=== PATIENT | female | born 1940 | race Caucasian/White ===

== ENCOUNTER 2020-06-13 07:03 | Emergency (ER) | payer MEDICARE ==
[~2020-06-13] VITALS: Ht 149.9 cm; Wt 68.6 kg
[~2020-06-13 07:03] MED LIST: CAPT1TAB7 PO; LEVO50TA5 PO; OXYB5POW MC; RANI-375 PO
[2020-06-13 07:36] VITALS: BP 167/79
--- NOTE | 2020-06-13 07:51 | RAD ---
Three-view left ankle dated 06/13/2020. No comparison available. CLINICAL INDICATION: Pain after injury. FINDINGS: 3 views left ankle show normal bony alignment. No displaced fracture. There is a corticated bone fragment near the tip of the medial malleolus, likely accessory ossification center or remote avulsion. Possible small osteochondral defect at the medial talar dome measuring about 3 mm. No apparent joint effusion. Small calcaneal spur. IMPRESSION: 1. No acute bony abnormality. 2. Possible small osteochondral defect at the medial talar dome, age indeterminate. Electronically signed by: Gabe Navarro MD (06/13/2020 7:48 AM) [id number]
[2020-06-13] MEDS ORDERED: IBUPROFEN 600 MG TABLET. PO ONE (08:00)
[2020-06-13] MEDS ORDERED: SULI200T2 PO (08:03)
--- NOTE | 2020-06-13 08:05 | PHYS DOC ---
Past History Past Medical History: High Cholesterol, Hypertension, Hyperthyroid Past Surgical History: Cholecystectomy, Hysterectomy Additional Past Surgical Histo: BACK Smoking: Non-smoker Alcohol Use: None Drug Use: None General Adult EDM: Chief Complaint: LOWER EXT PAIN HPI: HPI: The history was obtained from the patient. Patient is a 79-year-old female with PMH arthritis, hypertension, hyperlipidemia who presents with a chief complaint of left foot pain. Patient states 1 week ago she caught her third through fifth left toes in a car door. She states she did note some discomfort in her toes throughout the week. 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 She states she was on her feet for proximally 5 hours. She states she has had increased left medial foot pain since then. She has tried Tylenol at home with minimal relief. She states that she takes 1 g of Tylenol in the morning and in the evenings daily due to arthritis. She states she is never had arthritis in her foot. She states it is somewhat difficult to ambulate but she is able to. She denies any swelling. She has tried ice with some relief. She denies any knee pain. She denies any falls or head trauma. She denies any swelling to the left lower extremity. She denies any overlying skin changes. She states the medial aspect of her left foot is tender to touch. She denies any limitations in her ankle range of motion. No other complaints. Review of Systems: Review of Systems: Constitutional: Denies fever or chills Eyes: Denies change in visual acuity HENT: Denies nasal congestion or sore throat Respiratory: Denies cough or shortness of breath Cardiovascular: Denies chest pain or edema GI: Denies abdominal pain, nausea, vomiting, bloody stools or diarrhea : Denies dysuria Musculoskeletal: Positive for left ankle pain Integument: Denies rash Neurologic: Denies headache, focal weakness or sensory changes Endocrine: Denies polyuria or polydipsia Lymphatic: Denies swollen glands Psychiatric: Denies depression or anxiety Heart Score: Risk Factors: Risk Factors: DM, Current or recent (<one month) smoker, HTN, HLP, family history of CAD, obesity. Risk Scores: Score 0 - 3: 2.5% MACE over next 6 weeks - Discharge Home Score 4 - 6: 20.3% MACE over next 6 weeks - Admit for Clinical Observation Score 7 - 10: 72.7% MACE over next 6 weeks - Early Invasive Strategies Allergies: Allergies: Allergies Coded Allergies Type Severity Reaction Last Updated Verified No Known Drug Allergies 10/13/13 No Physical Exam: PE: Constitutional: Well developed, well nourished, no acute distress, non-toxic appearance. [] HENT: Normocephalic, atraumatic, bilateral external ears normal, oropharynx moist, no oral exudates, nose normal. [] Eyes: PERRLA, EOMI, conjunctiva normal, no discharge. [] Neck: Normal range of motion, no tenderness, supple, no stridor. [] Cardiovascular:Heart rate regular rhythm, no murmur [] Lungs & Thorax: Bilateral breath sounds clear to auscultation [] Abdomen: no tenderness, no masses, no pulsatile masses. [] Skin: Warm, dry, no erythema, no rash. [] Back: No tenderness, no CVA tenderness. [] Extremities: L KNEE/ANKLE/FOOT: Focal tenderness to palpation at the medial aspect of the left midfoot.. Tissue compartments are soft. Distal pulses are 2+. Knee extension is intact. Plantar flexion is intact. Proximal fibula is not tender to palpation. Medial malleolus is not tender to palpation. Lateral malleolus is not tender to palpation. 5th metatarsal head is not tender to palpation. There is no obvious deformity. Passive ROM is reduced due to pain. Active ROM is reduced due to pain. Neurologic: Alert and oriented X 3, normal motor function, normal sensory function, no focal deficits noted. [] Psychologic: Affect normal, judgement normal, mood normal. [] Current Patient Data: Vital Signs: Vital Signs Date Time Temp Pulse Resp B/P (MAP) Pulse Ox O2 Delivery O2 Flow Rate FiO2 06/13/20 07:36 97.2 85 18 167/79 (108) 100 EKG: EKG: [] Radiology/Procedures: Radiology/Procedures: [address] [address] IMAGING REPORT Signed PATIENT: CARLOS FORD ACCOUNT: [id number] : 1940 LOCATION: ER AGE: 79 SEX: F EXAM STATUS: REG ER ORD. PHYSICIAN: BLAZE TRACEY DO REASON: left ankle injury - pain on lateral side PROCEDURE: ANKLE LEFT 3V Three-view left ankle dated 06/13/2020. No comparison available. CLINICAL INDICATION: Pain after injury. FINDINGS: 3 views left ankle show normal bony alignment. No displaced fracture. There is a corticated bone fragment near the tip of the medial malleolus, likely accessory ossification center or remote avulsion. Possible small osteochondral defect at the medial talar dome measuring about 3 mm. No apparent joint effusion. Small calcaneal spur. IMPRESSION: 1. No acute bony abnormality. 2. Possible small osteochondral defect at the medial talar dome, age indeterminate. Electronically signed by: Gabe Navarro MD (06/13/2020 7:48 AM) [id number] DICTATED AND SIGNED BY: GABE NAVARRO MD DATE: 06/13/20 0748 CC: [facility]; BLAZE TRACEY DO; MER DOMINIQUE ~ [] Course & Med Decision Making: Course & Med Decision Making Pertinent Labs and Imaging studies reviewed. (See chart for details) Patient is a very pleasant 79-year-old female presents with chief complaint of medial left foot pain. Ritesh vital signs unremarkable. Physical exam noted below. Plain film imaging of the left foot and ankle negative for acute fracture. Her symptoms could be exacerbation of her initial injury after standing on her feet for the past 5 hours. Overall low suspicion for emergent etiology. No signs of infection. Patient was given a one-time dose of ibuprofen. I encouraged her to use ibuprofen but very limitedly given the potential side effects regarding her kidneys. I encouraged her to continue to ice her ankle, compression, elevation, and rest. She was offered a walking boot but states that she has at home. She is declining anyone for the emergency department. Patient does feel comfortable following up with her primary care physician in the next 2 3 days. Return precautions discussed and understood. She was able to ambulate prior to discharge. Stable for discharge home. Aleja Disclaimer: Aleja Disclaimer: This electronic medical record was generated, in whole or in part, using a voice recognition dictation system. Departure Departure: Impression: Primary Impression: Left foot pain Disposition: HOME/RESIDENCE PRIOR TO ADM Condition: GOOD Referrals: MER DOMINIQUE (PCP) Patient Instructions: Foot Contusion Additional Instructions: Please follow-up with your primary care physician in the next 2 to 3 days. Scripts Sulindac (SULINDAC) 200 Mg Tablet 200 MG PO BID for pain for 5 Days, #10 TAB Prov: BLAZE TRACEY DO 06/13/20 Justification of Admission: Justification of Admission: Justification of Admission Dx: N/A BLAZE TRACEY DO Jun 13, 2020 08:05
== END 2020-06-13 08:16 | disposition home or self-care (01) ==
LOC: ER 07:03
DX: M79.672 Pain in left foot (principal); M25.572 Pain in left ankle and joints of left foot; E78.00 Pure hypercholesterolemia, unspecified; I10 Essential (primary) hypertension; E05.90 Thyrotoxicosis, unspecified without thyrotoxic crisis or storm; E78.5 Hyperlipidemia, unspecified; W23.0XXA Caught, crushed, jammed, or pinched between moving objects, initial encounter; Y93.89 Activity, other specified; Y92.89 Other specified places as the place of occurrence of the external cause; Y99.8 Other external cause status
CPT/HCPCS: 73610; 99283

== ENCOUNTER 2020-08-12 12:47 | Inpatient (IN) | payer MEDICARE ==
[~2020-08-12] VITALS: Ht 149.9 cm; Wt 63.4 kg
[~2020-08-12 12:47] MED LIST changes: +SULI200T2 PO
--- NOTE | 2020-08-12 13:05 | PHYS DOC ---
Past History Past Medical History: High Cholesterol, Hypertension, Hyperthyroid Past Surgical History: Cholecystectomy, Hysterectomy Additional Past Surgical Histo: BACK Smoking: Non-smoker Alcohol Use: None Drug Use: None General Adult HPI: HPI: History obtained from the patient. Patient is an 80-year-old female with a history of recent pacemaker placement, hypertension, hyperlipidemia who presents with chief complaint of back pain and chest pain. Patient states she had an episode of severe upper back pain that began yesterday while asleep. She states it awoke her from her sleep around midnight. She states that the pain this morning seem to have subsided. She states however 1 hour prior to arrival she began developing right-sided chest pressure that radiated to her right shoulder. She notes that breathing and makes the pain worse. She denies nausea or diaphoresis. Denies syncope. States she had a pacemaker placed at [facility] 3 weeks ago. Denies any history of coronary artery disease including stent placement. Denies a history of blood clot in the legs or lungs. Denies any swelling to the legs. Denies any new cough or fever. Denies any known exposure to coronavirus. No other complaints. Review of Systems: Review of Systems: Constitutional: Denies fever or chills Eyes: Denies change in visual acuity HENT: Denies nasal congestion or sore throat Respiratory: Denies cough or shortness of breath Cardiovascular: Positive for chest pain GI: Denies abdominal pain, nausea, vomiting, bloody stools or diarrhea : Denies dysuria Musculoskeletal: Denies back pain or joint pain Integument: Denies rash Neurologic: Denies headache, focal weakness or sensory changes Endocrine: Denies polyuria or polydipsia Lymphatic: Denies swollen glands Psychiatric: Denies depression or anxiety Heart Score: Risk Factors: Risk Factors: DM, Current or recent (<one month) smoker, HTN, HLP, family history of CAD, obesity. Risk Scores: Score 0 - 3: 2.5% MACE over next 6 weeks - Discharge Home Score 4 - 6: 20.3% MACE over next 6 weeks - Admit for Clinical Observation Score 7 - 10: 72.7% MACE over next 6 weeks - Early Invasive Strategies Allergies: Allergies: Allergies Coded Allergies Type Severity Reaction Last Updated Verified No Known Drug Allergies 10/13/13 No Physical Exam: PE: Constitutional: Well developed, well nourished, no acute distress, non-toxic appearance. [] HENT: Normocephalic, atraumatic, bilateral external ears normal, oropharynx moist, no oral exudates, nose normal. [] Eyes: PERRLA, EOMI, conjunctiva normal, no discharge. [] Neck: Normal range of motion, no tenderness, supple, no stridor. [] Cardiovascular:Heart rate regular rhythm, no murmur [] Lungs & Thorax: Bilateral breath sounds clear to auscultation [] Abdomen: Bowel sounds normal, soft, no tenderness, no masses, no pulsatile masses. [] Skin: Warm, dry, no erythema, no rash. [] Back: No tenderness, no CVA tenderness. [] Extremities: No tenderness, no cyanosis, no clubbing, ROM intact, no edema. [] Neurologic: Alert and oriented X 3, normal motor function, normal sensory function, no focal deficits noted. [] Psychologic: Affect normal, judgement normal, mood normal. [] Current Patient Data: Labs: Laboratory Tests Test 08/12/20 13:13 White Blood Count 9.4 x10^3/uL Red Blood Count 4.02 x10^6/uL Hemoglobin 11.7 g/dL Hematocrit 36.0 % Mean Corpuscular Volume 90 fL Mean Corpuscular Hemoglobin 29 pg Mean Corpuscular Hemoglobin Concent 33 g/dL Red Cell Distribution Width 13.7 % Platelet Count 283 x10^3/uL Neutrophils (%) (Auto) 66 % Lymphocytes (%) (Auto) 23 % Monocytes (%) (Auto) 8 % Eosinophils (%) (Auto) 4 % Basophils (%) (Auto) 1 % Neutrophils # (Auto) 6.2 x10^3uL Lymphocytes # (Auto) 2.1 x10^3/uL Monocytes # (Auto) 0.7 x10^3/uL Eosinophils # (Auto) 0.4 x10^3/uL Basophils # (Auto) 0.1 x10^3/uL D-Dimer (Marlen) 2.04 mg/L Sodium Level 139 mmol/L Potassium Level 2.8 mmol/L Chloride Level 102 mmol/L Carbon Dioxide Level 25 mmol/L Anion Gap 12 Blood Urea Nitrogen 24 mg/dL Creatinine 1.1 mg/dL Estimated GFR (Cockcroft-Gault) 47.8 Glucose Level 97 mg/dL Calcium Level 11.3 mg/dL Magnesium Level 1.6 mg/dL Troponin I Quantitative < 0.017 ng/mL Current Medications Medications (Trade) Dose Ordered Sig/Mamta Route PRN Reason Start Time Stop Time Status Last Admin Dose Admin Magnesium Sulfate 50 ml @ 25 mls/hr 1X ONCE IV 08/12/20 14:15 08/12/20 16:14 DC Potassium Chloride 100 ml @ 100 mls/hr Q1H IV 08/12/20 14:15 08/12/20 18:14 Sodium Chloride 1,000 ml @ 1,000 mls/hr 1X ONCE IV 08/12/20 14:15 08/12/20 15:14 DC Iohexol (Omnipaque 350 Mg/ml) 100 ml 1X ONCE IV 08/12/20 14:15 08/12/20 14:24 DC 08/12/20 14:27 Iohexol (Omnipaque 350 Mg/ml) 100 ml STK-MED ONCE .ROUTE 08/12/20 14:24 08/12/20 14:24 DC EKG: EKG: [] EKG consistent with normal sinus rhythm. Left axis noted. Nonspecific interventricular conduction delay present. No acute ST segment elevation appreciated. Ventricular rate of 82 bpm. Radiology/Procedures: Radiology/Procedures: [place] [address] IMAGING REPORT Signed PATIENT: CARLOS FORD ACCOUNT: [id number] : 1940 LOCATION: ER AGE: 80 SEX: F EXAM STATUS: REG ER ORD. PHYSICIAN: BLAZE TRACEY DO REASON: pleuritic CP. cocnern for PE PROCEDURE: CT ANGIOGRAPHY CHEST PQRS Compliance Statement: One or more of the following individualized dose reduction techniques were utilized for this examination: 1. Automated exposure control 2. Adjustment of the mA and/or kV according to patient size 3. Use of iterative reconstruction technique CT ANGIOGRAPHY CHEST 08/12/2020 2:08 PM Indication: Pleuritic chest pain COMPARISON: None available. TECHNIQUE: Multiple axial CT images of the chest were obtained after intravenous administration of nonionic contrast. Coronal and sagittal reformats are provided. Maximum intensity projection images are provided. FINDINGS: Left chest wall cardiac device is identified with leads terminating in the right atrium and right ventricle. Heart size borderline enlarged. Three-vessel coronary artery vascular calcific effusions are present. Thoracic aorta is normal in course and caliber. There is adequate opacification of pulmonary arterial system. No filling defects are identified within the opacified pulmonary arteries to suggest acute or chronic pulmonary embolism. Calcified granuloma noted at the right lung base. Calcified mediastinal and right hilar lymph nodes are identified. Small right pleural effusion with adjacent compressive atelectasis versus infiltrate. No pathologically enlarged thoracic lymph nodes are identified. No suspicious solid noncalcified pulmonary nodules. No pulmonary vascular congestion or pneumothorax. Small hiatal hernia. No suspicious osseous abnormality is identified. Superior plate Schmorl's node at T10 with mild height loss. IMPRESSION: No evidence for acute or chronic pulmonary embolism. Trace right pleural effusion with adjacent compressive atelectasis versus infiltrate. Mild cardiomegaly. Three-vessel coronary artery vascular calcifications. Electronically signed by: Cathy Abreu MD (08/12/2020 2:56 PM) [facility] DICTATED AND SIGNED BY: CATHY ABREU MD DATE: 08/12/20 1456 CC: BLAZE TRACEY DO; MER DOMINIQUE ~ [] Course & Med Decision Making: Course & Med Decision Making Pertinent Labs and Imaging studies reviewed. (See chart for details) [] Patient is a very pleasant 80-year-old female who presents with chief complaint of right-sided chest pressure. She knows she had a pacemaker placed at [facility] 3 weeks ago. Denies any known history of coronary artery disease however. Troponin today was not elevated. CT PE study was obtained given the pleuritic component to her symptoms. PE study negative. Pat ient does have a severely low potassium at 2.8. Patient did have this and magnesium replacement started in the emergency department. I do feel she will require hospitalization for further electrolyte replacement and chest pain work- up. Signout given to hospitalist. Aleja Disclaimer: Aleja Disclaimer: This electronic medical record was generated, in whole or in part, using a voice recognition dictation system. Departure Departure: Impression: Primary Impression: Chest pain Qualified Codes: R07.9 - Chest pain, unspecified Additional Impressions: Hypokalemia Hypomagnesemia Disposition: ADMITTED INPT THIS HOSP Condition: STABLE Referrals: MER DOMINIQUE (PCP) BLAZE TRACEY DO Aug 12, 2020 13:05
--- NOTE | 2020-08-12 13:15 | RAD ---
EXAM: CHEST AP ONLY INDICATION: Reason: CP / Spl. Instructions: / History: . TECHNIQUE: Single view COMPARISON: None FINDINGS: Left chest dual-chamber MR-compatible pacemaker is present. The heart size is normal. The great vessels appear unremarkable. There is no hilar or mediastinal mass. The lungs show calcified granuloma the right lung base but otherwise are clear. There is no pleural effusion or pneumothorax. There are no significant osseous abnormalities. Lower cervical spine ACDF surgical changes are present, incompletely imaged. IMPRESSION: No active cardiopulmonary disease. Electronically signed by: Netta Luong MD (08/12/2020 1:12 PM) [id number]
[2020-08-12 13:37] LABS: BASO # 0.1 x10^3/uL (0.0-0.2); BASO % 1 % (0-3); EOS # 0.4 x10^3/uL (0.0-0.7); EOS % 4 % (0-3); HEMOGLOBIN 11.7 g/dL (12.0-15.5); LYMPH # 2.1 x10^3/uL (1.0-4.8); LYMPH % 23 % (24-48); MEAN CORPUSCULAR HEMOGLOBIN 29 pg (25-35); MEAN CORPUSCULAR HGB CONC 33 g/dL (31-37); MEAN CORPUSCULAR VOLUME 90 fL (79-100); MONO # 0.7 x10^3/uL (0.0-1.1); MONO % 8 % (0-9); NEUT # 6.2 x10^3uL (1.8-7.7); NEUT % 66 % (31-73); PLATELET COUNT 283 x10^3/uL (140-400); RED BLOOD COUNT 4.02 x10^6/uL (3.50-5.40); RED CELL DISTRIBUTION WIDTH 13.7 % (11.5-14.5); WHITE BLOOD COUNT 9.4 x10^3/uL (4.0-11.0)
[2020-08-12 13:49] LABS: CALCIUM 11.3 mg/dL (8.5-10.1); CREATININE 1.1 mg/dL (0.6-1.0); GFR 47.8
[2020-08-12 13:54] LABS: POTASSIUM 2.8 mmol/L (3.5-5.1)
[2020-08-12] MEDS ORDERED: IV NORMAL SALINE 1,000ML 1,000 ML IV ONE (14:15)
[2020-08-12] MEDS ORDERED: IOHEXOL 350 MG/ML 100 ML VIAL. IV ONE (14:15)
[2020-08-12] MEDS ORDERED: MAGNESIUM SULFATE 2GM 50 ML IV ONE (14:15)
[2020-08-12] MEDS: POTASSIUM CHLORIDE 10MEQ 100 ML IV SCH ×4 (14:15→17:15)
[2020-08-12] MEDS ORDERED: IOHEXOL 350 MG/ML 100 ML VIAL. ONE (14:24)
--- NOTE | 2020-08-12 14:49 | EKG ---
[address] [address] Test Date: 2020-08-12 Test Time: 12:52:58 Pat Name: [facility] Department: Room: Gender: F Experience Design Director: LORENA : 1940 Requested By: BLAZE TRACEY Order Number: [id number] Reading MD: Measurements Intervals Searchlight Rate: 82 P: 16 ND: 186 QRS: -69 QRSD: 164 T: 110 QT: 424 QTc: 499 Interpretive Statements SINUS RHYTHM ABNORMAL LEFT AXIS DEVIATION NON SPECIFIC INTRAVENTRICULAR BLOCK QRS(T) CONTOUR ABNORMALITY CONSIDER ANTEROSEPTAL MYOCARDIAL DAMAGE CONSIDER INFERIOR MYOCARDIAL DAMAGE ABNORMAL ECG RI6.02 No previous ECG available for comparison
--- NOTE | 2020-08-12 15:00 | RAD ---
PQRS Compliance Statement: One or more of the following individualized dose reduction techniques were utilized for this examination: 1. Automated exposure control 2. Adjustment of the mA and/or kV according to patient size 3. Use of iterative reconstruction technique CT ANGIOGRAPHY CHEST 08/12/2020 2:08 PM Indication: Pleuritic chest pain COMPARISON: None available. TECHNIQUE: Multiple axial CT images of the chest were obtained after intravenous administration of nonionic contrast. Coronal and sagittal reformats are provided. Maximum intensity projection images are provided. FINDINGS: Left chest wall cardiac device is identified with leads terminating in the right atrium and right ventricle. Heart size borderline enlarged. Three-vessel coronary artery vascular calcific effusions are present. Thoracic aorta is normal in course and caliber. There is adequate opacification of pulmonary arterial system. No filling defects are identified within the opacified pulmonary arteries to suggest acute or chronic pulmonary embolism. Calcified granuloma noted at the right lung base. Calcified mediastinal and right hilar lymph nodes are identified. Small right pleural effusion with adjacent compressive atelectasis versus infiltrate. No pathologically enlarged thoracic lymph nodes are identified. No suspicious solid noncalcified pulmonary nodules. No pulmonary vascular congestion or pneumothorax. Small hiatal hernia. No suspicious osseous abnormality is identified. Superior plate Schmorl's node at T10 with mild height loss. IMPRESSION: No evidence for acute or chronic pulmonary embolism. Trace right pleural effusion with adjacent compressive atelectasis versus infiltrate. Mild cardiomegaly. Three-vessel coronary artery vascular calcifications. Electronically signed by: Hafsa Van MD (08/12/2020 2:56 PM) [facility]
[2020-08-12] MEDS: IV NORMAL SALINE 1,000ML 1,000 ML IV SCH (17:45)
--- NOTE | 2020-08-12 18:08 | HP ---
ADMIT DATE: 08/12/2020 HISTORY OF PRESENT ILLNESS: The patient is an 80-year-old female patient who came to the Emergency Room with a complaint of back pain and chest pain. She stated that she had an episode of severe upper back pain that began last night when she was asleep. She states it woke her up from her sleep around midnight. She stated that the pain this morning seems to have subsided. However, an hour prior to arrival, she began developing right-sided chest pressure that radiated to her shoulder. She notes that breathing makes the pain worse. She denied any nausea or diaphoresis. Denied any syncope. She stated that she had had a pacemaker placed at [facility] about 3 weeks ago. Denied any history of coronary artery disease including stent placement. Denied any history of blood clot in her legs or lung. Denied any swelling of her leg. Denied any new cough or fever. Denied any exposure to coronavirus. She was extensively investigated in the Emergency Room. Her EKG was consistent with normal sinus rhythm with nonspecific intraventricular conduction delay present with no acute ST-segment elevation appreciated. The ventricular rate was 82 beats per minute. She did have lab work, which showed that she has hypokalemia and hypomagnesemia. Her calcium was high also and her D-dimer was high at 2.04. She did have chest x-ray, which basically showed no active cardiopulmonary disease. A CT angio of the chest showed no evidence of acute or chronic pulmonary embolism, trace right pleural effusion, adjacent compressive atelectasis versus infiltrate, mild cardiomegaly, 3-vessel coronary artery vascular calcification. The patient was admitted with hypokalemia, hypomagnesemia and hypercalcemia as well as questionable community-acquired pneumonia. We will also do 2 more sets of cardiac enzymes to rule out myocardial infarction. PAST MEDICAL HISTORY: Significant for hypertension, hyperlipidemia, hypothyroidism, generalized osteoarthritis. She does have also a high-grade heart block for which she underwent permanent pacemaker placement. PAST SURGICAL HISTORY: Significant for neck surgery, back surgery, permanent pacemaker implant, bilateral cataract extraction, cholecystectomy and colonoscopy. ALLERGIES: She has no known drug allergies. MEDICATIONS: She is currently on following medications: She is on captopril and hydrochlorothiazide; she takes 1 tablet once a day, sulindac 200 mg twice a day, ranitidine 150 mg once a day, levothyroxine 50 mcg once a day, oxybutynin chloride 5 mg twice a day. REVIEW OF SYSTEMS: As per history of present illness. FAMILY HISTORY: She has 2 sisters that are alive. She has 2 sisters and 5 brothers, all . She is the baby in the family. Her father at age of 64, myocardial infarction. Mother at age of 86 because of natural causes. SOCIAL HISTORY: She is and lives with her . She has 2 daughters and 1 son and 1 son has in a motor vehicle accident recently. She quit smoking about 30 years ago and quit alcohol drinking about 25 years ago. She does not use any drugs. She was in the [email or web address] business for 35 years. REVIEW OF SYSTEMS: As per history of present illness. PHYSICAL EXAMINATION: GENERAL: On arrival to the Emergency Room, the patient looked well and was clearly in no apparent respiratory distress. No pallor, jaundice, cyanosis or thyromegaly. No jugular venous distention. No lower limb edema. VITAL SIGNS: Her heart rate was 104, blood pressure was 138/94, temperature was 98.3, respiratory rate was 16, and oxygen saturation was 96%. HEAD, EYES, EARS, NOSE AND THROAT: Showed normocephalic, atraumatic. NECK: Supple. HEART: Showed normal first and second heart sounds. No gallop, rub or murmur. CHEST: Clear to auscultation. No crepitation or rhonchi. ABDOMEN: Distended, soft, nontender. NEUROLOGIC: She was awake, alert, responding appropriately. All cranial nerves intact. EXTREMITIES: She moves extremities without difficulty. She normally ambulates without assistance or assistive devices. LABORATORY DATA: Her lab work on arrival showed a white cell count 9400, hemoglobin 11.7, hematocrit 36, MCV 90 and platelet count of 283,000 with normal manual differential. Her serum sodium was 139, potassium 2.8, chloride 102, bicarbonate 25, anion gap of 12, BUN 24, creatinine 1.1, estimated GFR was 47 mL per minute. Her glucose was 97, calcium was 11.3, magnesium was 1.6. Troponin was less than 0.017. Her D-dimer was 2.04. Her chest x-ray was unremarkable and CT angio of the chest did show no evidence of acute or chronic pulmonary embolism. She has trace right-sided pleural effusion with adjacent compressive atelectasis versus infiltrate, mild cardiomegaly; 3-vessel coronary artery vascular calcification. PLAN: The patient was admitted with chest pain. We will do 2 more sets of cardiac enzyme. She has also hypomagnesemia, hypokalemia, hypercalcemia. We will replenish her magnesium and potassium. I will hold her captopril/hydrochlorothiazide that is probably the culprit and caused all this metabolic abnormality, and I will repeat all her lab works tomorrow and decide on further management accordingly. ALVARO JEAN MD DR: ANA/jennifer JOB#: [id number] / [id number]
[2020-08-12 18:15] VITALS: BP 130/84
[2020-08-12 19:00] VITALS: BP 120/81
--- NOTE | 2020-08-12 19:00 | NUR ---
ADMISSION: The patient, CARLOS FORD, 80 y/o, F admitted by ALVARO JEAN MD, was given written information regarding hospital policies, unit procedures and contact persons. Pt arrived to room 105 on previous shift. Pt here for c/o chest heaviness and back pain that began around 3am and awoke her from sleep. Pain subsided after approx. 30 mins and pt fell back to sleep. Saw PCP today and was directed to ED for treatment. Pt reports current chest heaviness, worse with deep breaths. Pt on telemetry, V-paced with rate in the 70's. Pt was swabbed for COVID while in the ED, placed in airborne and contact isolation while awaiting results. Cardiology consulted, call placed. POC discussed, V/U. Call light in reach. Valuables were checked and logged. Left in room with pt.
[2020-08-12] MEDS ORDERED: FAMOTIDINE 20 MG TABLET PO SCH (21:00)
[2020-08-12] MEDS ORDERED: SIMV10TA15 PO (21:12)
[2020-08-12] MEDS ORDERED: OMEP20CA16 PO (21:12)
[2020-08-12] MEDS ORDERED: ACET325T9 PO (21:12)
[2020-08-12] MEDS: MAGNESIUM OXIDE 400 MG TABLET PO SCH (21:29)
[2020-08-12] MEDS: OXYBUTYNIN CHLORIDE 5 MG TABLET PO SCH (21:29)
[2020-08-12] MEDS: POTASSIUM BICARB 20 MEQ EFFERVESCENT TABLET. PO SCH (21:29)
[2020-08-12 22:42] VITALS: BP 122/71
[2020-08-13 05:38] LABS: BASO % 0 % (0-3); EOS # 0.3 x10^3/uL (0.0-0.7); EOS % 3 % (0-3); HEMATOCRIT 31.5 % (36.0-47.0); HEMOGLOBIN 10.2 g/dL (12.0-15.5); LYMPH # 1.6 x10^3/uL (1.0-4.8); LYMPH % 19 % (24-48); MEAN CORPUSCULAR HEMOGLOBIN 29 pg (25-35); MEAN CORPUSCULAR HGB CONC 33 g/dL (31-37); MEAN CORPUSCULAR VOLUME 89 fL (79-100); MONO # 0.9 x10^3/uL (0.0-1.1); MONO % 11 % (0-9); NEUT # 5.7 x10^3uL (1.8-7.7); NEUT % 67 % (31-73); PLATELET COUNT 245 x10^3/uL (140-400); RED BLOOD COUNT 3.54 x10^6/uL (3.50-5.40); RED CELL DISTRIBUTION WIDTH 13.8 % (11.5-14.5); WHITE BLOOD COUNT 8.6 x10^3/uL (4.0-11.0)
[2020-08-13 05:40] VITALS: BP 112/81
[2020-08-13 05:51] LABS: ALBUMIN 3.2 g/dL (3.4-5.0); CALCIUM 9.4 mg/dL (8.5-10.1); CREATININE 1.1 mg/dL (0.6-1.0); GFR 47.8; MAGNESIUM 1.7 mg/dL (1.8-2.4); POTASSIUM 3.5 mmol/L (3.5-5.1); TOTAL BILIRUBIN 0.6 mg/dL (0.2-1.0); TOTAL PROTEIN 6.4 g/dL (6.4-8.2)
[2020-08-13] MEDS ORDERED: LEVOTHYROXINE 50 MCG TABLET PO SCH (06:00)
[2020-08-13] MEDS: IV NORMAL SALINE 1,000ML 1,000 ML IV SCH (07:05)
--- NOTE | 2020-08-13 07:44 | PDOC2 ---
NENA RAZO RECORDS TECH 08/13/20 0744: CARDIAC CONSULT DATE OF CONSULT DOS: DATE: 08/13/20 TIME: 07:41 REASON FOR CONSULT Reason for Consult Chest pain REFERRING PHYSICIAN Referring Physician Dr. Martínez SOURCE Source: Chart review, Patient HPI History of Present Illness This is an 80 yo female who presented secondary to chest pain. Patient reports she woke up yesterday morning with lower back pain. Woke her up in sleep. Got up and sat in the chart. Pain seemed to move upward in her back. Later in the morning, came around the from and had some tightness across her left chest and pain in her right shoulder. No associated dizziness, diaphoresis, palpitations, SOA, or nausea/vomiting. Patient follows with [facility]. Had PPM implanted 3 weeks ago for SSS. Tolerated procedure well. Reprots having echo conducted at that time and reports "good strong heart". No recent chest pain or shortness of breath upon exertion. Chest pain has resolved and is feeling well this am. PAST MEDICAL HISTORY Cardiovascular: HTN, hyperipidemia, Other (SSS) Musculoskeletal: Osteoarthritis Endocrine: Hypothyroidism PAST SURGICAL HISTORY Past Surgical History: Cataract Removal, Hysterectomy, Pacemaker FAMILY HISTORY Family History: Hypertension SOCIAL HISTORY Smoke: No ALCOHOL: none Drugs: None Lives: with Family CURRENT MEDICATIONS Current Medications Current Medications Magnesium Sulfate 50 ml @ 25 mls/hr 1X ONCE IV Last administered on 08/12/20at 14:15; Start 08/12/20 at 14:15; Stop 08/12/20 at 16:14; Status DC Potassium Chloride 100 ml @ 100 mls/hr Q1H IV Last administered on 08/12/20at 14:15; Start 08/12/20 at 14:15; Stop 08/12/20 at 18:14; Status DC Sodium Chloride 1,000 ml @ 1,000 mls/hr 1X ONCE IV Last administered on 08/12/20at 14:15; Start 08/12/20 at 14:15; Stop 08/12/20 at 15:14; Status DC Iohexol (Omnipaque 350 Mg/ml) 100 ml 1X ONCE IV Last administered on 08/12/20at 14:27; Start 08/12/20 at 14:15; Stop 08/12/20 at 14:24; Status DC Iohexol (Omnipaque 350 Mg/ml) 100 ml STK-MED ONCE .ROUTE ; Start 08/12/20 at 14:24; Stop 08/12/20 at 14:24; Status DC Levothyroxine Sodium (Synthroid) 50 mcg DAILY06 PO Last administered on 08/13/20at 05:18; Start 08/13/20 at 06:00 Oxybutynin Chloride (Ditropan) 5 mg [id number] PO Last administered on 08/12/20 21:29; Start 08/12/20 at 21:00 Famotidine (Pepcid) 20 mg QHS PO Last administered on 08/12/20 21:29; Start 08/12/20 at 21:00 Potassium Bicarbonate (Potassium Effervescent Tablet) 40 meq TID PO Last administered on 08/12/20 21:29; Start 08/12/20 at 21:00 Magnesium Oxide (Magnesium Oxide) 400 mg TID PO Last administered on 08/12/20 21:29; Start 08/12/20 at 21:00 Sodium Chloride 1,000 ml @ 75 mls/hr [id number] IV Last administered on 08/12/20at 17:45; Start 08/12/20 at 17:45 Simvastatin (Zocor) 10 mg HS PO ; Start 08/13/20 at 21:00 Pantoprazole Sodium (Protonix) 40 mg DAILY PO ; Start 08/13/20 at 09:00 Influenza Virus Vaccine Quadrival (Fluzone Quad Syringe) 0.5 ml ONCE ONCE VAX IM ; Start 08/13/20 at 09:00; Stop 08/13/20 at 09:01 Active Scripts Active Sulindac 200 Mg Tablet 200 Mg PO BID 5 Days Reported Tylenol (Acetaminophen) 325 Mg Tablet 650 Mg PO BID Simvastatin 10 Mg Tablet 10 Mg PO HS Omeprazole 20 Mg Capsule.dr 20 Mg PO DAILY Oxybutynin Chloride 5 Gm Powder 5 Gm MC [employer]ics Supervisor (Ranitidine Hcl) 150 Mg Tablet 150 Mg PO Captopril-Hctz 50-15 Mg Tablet (Captopril/Hydrochlorothiazide) 1 Each Tablet 1 Each PO Levothyroxine Sodium 50 Mcg Tablet 50 Mcg PO ALLERGIES Allergies: Coded Allergies: No Known Drug Allergies (Unverified , 10/13/13) ROS Review of Systems 14 point ROS conducted with pertinent positives noted above in HPI PHYSICAL EXAM General: Alert, Oriented X3, Cooperative, No acute distress HEENT: Atraumatic, Mucous membr. moist/pink Lungs: Clear to auscultation, Other (right chest PPM insertion site healing. Incision well approximated) Heart: Regular rate (100% v-paced ) Abdomen: Soft, No tenderness Extremities: No edema, Normal pulses Skin: No breakdown Neuro: Normal speech, Sensation intact Psych/Mental Status: Mental status NL, Mood NL MUSCULOSKELETAL: Osteoarthritic changes both hands VITALS Vital Signs Vital Signs Date Time Temp Pulse Resp B/P (MAP) Pulse Ox O2 Delivery O2 Flow Rate FiO2 08/13/20 05:40 97.8 73 20 112/81 (91) 95 Room Air LABS LABS Laboratory Tests Test 08/12/20 13:13 08/12/20 15:55 08/13/20 00:20 08/13/20 05:20 White Blood Count 9.4 x10^3/uL (4.0-11.0) 8.6 x10^3/uL (4.0-11.0) Red Blood Count 4.02 x10^6/uL (3.50-5.40) 3.54 x10^6/uL (3.50-5.40) Hemoglobin 11.7 g/dL (12.0-15.5) 10.2 g/dL (12.0-15.5) Hematocrit 36.0 % (36.0-47.0) 31.5 % (36.0-47.0) Mean Corpuscular Volume 90 fL (79-100) 89 fL (79-100) Mean Corpuscular Hemoglobin 29 pg (25-35) 29 pg (25-35) Mean Corpuscular Hemoglobin Concent 33 g/dL (31-37) 33 g/dL (31-37) Red Cell Distribution Width 13.7 % (11.5-14.5) 13.8 % (11.5-14.5) Platelet Count 283 x10^3/uL (140-400) 245 x10^3/uL (140-400) Neutrophils (%) (Auto) 66 % (31-73) 67 % (31-73) Lymphocytes (%) (Auto) 23 % (24-48) 19 % (24-48) Monocytes (%) (Auto) 8 % (0-9) 11 % (0-9) Eosinophils (%) (Auto) 4 % (0-3) 3 % (0-3) Basophils (%) (Auto) 1 % (0-3) 0 % (0-3) Neutrophils # (Auto) 6.2 x10^3uL (1.8-7.7) 5.7 x10^3uL (1.8-7.7) Lymphocytes # (Auto) 2.1 x10^3/uL (1.0-4.8) 1.6 x10^3/uL (1.0-4.8) Monocytes # (Auto) 0.7 x10^3/uL (0.0-1.1) 0.9 x10^3/uL (0.0-1.1) Eosinophils # (Auto) 0.4 x10^3/uL (0.0-0.7) 0.3 x10^3/uL (0.0-0.7) Basophils # (Auto) 0.1 x10^3/uL (0.0-0.2) 0.0 x10^3/uL (0.0-0.2) D-Dimer (Marlen) 2.04 mg/L (0.00-0.50) Sodium Level 139 mmol/L (136-145) 139 mmol/L (136-145) Potassium Level 2.8 mmol/L (3.5-5.1) 3.5 mmol/L (3.5-5.1) Chloride Level 102 mmol/L (98-107) 104 mmol/L (98-107) Carbon Dioxide Level 25 mmol/L (21-32) 28 mmol/L (21-32) Anion Gap 12 (6-14) 7 (6-14) Blood Urea Nitrogen 24 mg/dL (7-20) 20 mg/dL (7-20) Creatinine 1.1 mg/dL (0.6-1.0) 1.1 mg/dL (0.6-1.0) Estimated GFR (Cockcroft-Gault) 47.8 47.8 Glucose Level 97 mg/dL (70-99) 103 mg/dL (70-99) Calcium Level 11.3 mg/dL (8.5-10.1) 9.4 mg/dL (8.5-10.1) Magnesium Level 1.6 mg/dL (1.8-2.4) 1.7 mg/dL (1.8-2.4) Troponin I Quantitative < 0.017 ng/mL (0-0.055) 0.020 ng/mL (0-0.055) < 0.017 ng/mL (0-0.055) BUN/Creatinine Ratio 18 (6-20) Total Bilirubin 0.6 mg/dL (0.2-1.0) Aspartate Amino Transf (AST/SGOT) 10 U/L (15-37) Alanine Aminotransferase (ALT/SGPT) 12 U/L (14-59) Alkaline Phosphatase 42 U/L (46-116) Total Protein 6.4 g/dL (6.4-8.2) Albumin 3.2 g/dL (3.4-5.0) Albumin/Globulin Ratio 1.0 (1.0-1.7) ASSESSMENT/PLAN Assessment/Plan 1. Chest pain, atypical; AMI ruled out 2. SSS s/p recent PPM implantation; Follow with [facility] 3. Hypertension; controlled 4. Hyperlipidemia; statin 5 . Hypothyroidism 6. Hypomagnesemia 7. Elevated d-dimer; CTA negative for DVT 8. PUI Recommendations Replaced Mg ASA, statin therapy Discussed inpatient versus outpatient ischemic evaluation with stress test. Patient would like to have this conducted on an outpatient basis through [facility]. Okay to discharge from a CV standpoint Follow up with primary dispensing optician upon discharge. ANGELA ANDERS MD 08/13/202007: CARDIAC CONSULT ASSESSMENT/PLAN Assessment/Plan Patient seen and examined. Agree with INTEGRATED SPECIALIST's assessment and plan. CP with atypical features. [place] ruled out. SSS s/p PPM implantation clinically stable Plan outpatient ischemic evaluation Thank you for your consultation NENA RAZO APRN Aug 13, 2020 07:44 ANGELA ANDERS MD Aug 13, 2020 20:08
[2020-08-13] MEDS: MAGNESIUM OXIDE 400 MG TABLET PO SCH (07:57)
[2020-08-13] MEDS: OXYBUTYNIN CHLORIDE 5 MG TABLET PO SCH (07:57)
[2020-08-13] MEDS: POTASSIUM BICARB 20 MEQ EFFERVESCENT TABLET. PO SCH (07:57)
[2020-08-13] MEDS ORDERED: MAGNESIUM SULFATE 2GM 50 ML IV ONE (08:00)
[2020-08-13] MEDS ORDERED: PANTOPRAZOLE 40 MG TABLET. PO SCH (09:00)
[2020-08-13] MEDS ORDERED: FLU VACC QS 2020-21(6MOS+)/PF 0.5 ML SYRINGE. VAX IM ONE (09:00)
[2020-08-13 10:31] VITALS: BP 127/73
[2020-08-13] MEDS ORDERED: MAGN400T44 PO (13:40)
[2020-08-13] MEDS ORDERED: POTA20TA4 PO (13:40)
--- NOTE | 2020-08-13 14:08 | NUR ---
PATIENT IS DISCHARGED TO HOME, DISCHARGED INSTRUCTIONS AND PRESCRIBED MEDICATIONS REVIEWED, PT VERBALIZED UNDERSTANDING. PATIENT LEFT ROOM VIA W/C ACCOMPANIED BY [facility]ERY [facility]INA. PATIENT IS TAKEN HOME VIA FAMILY MEMBER VIA PERSONAL VEHICLE.
[2020-08-13] MEDS ORDERED: SIMVASTATIN 10 MG TABLET PO SCH (21:00)
[2020-08-14] MEDS ORDERED: FLU VACC QS 2020-21(6MOS+)/PF 0.5 ML SYRINGE. VAX IM ONE (09:00)
--- NOTE | 2020-08-18 14:48 | NUR ---
IP: notified patient of COVID result.
== END 2020-08-13 14:10 | disposition home or self-care (01) | DRG 641 ==
LOC: ER 12:47 → 1 SOUTH 16:06
PROVIDERS: ADMIT Internal Medicine; ATTEND Internal Medicine
DX: E87.6 Hypokalemia (principal); I25.10 Atherosclerotic heart disease of native coronary artery without angina pectoris; E83.42 Hypomagnesemia; I10 Essential (primary) hypertension; E03.9 Hypothyroidism, unspecified; M25.511 Pain in right shoulder; M54.5 Low back pain; R79.89 Other specified abnormal findings of blood chemistry; E78.00 Pure hypercholesterolemia, unspecified; E83.52 Hypercalcemia; M15.9 Polyosteoarthritis, unspecified; I49.5 Sick sinus syndrome; Z82.49 Family history of ischemic heart disease and other diseases of the circulatory system; Z90.710 Acquired absence of both cervix and uterus; Z95.0 Presence of cardiac pacemaker; Z87.891 Personal history of nicotine dependence; Z98.42 Cataract extraction status, left eye; Z98.41 Cataract extraction status, right eye
CPT/HCPCS: 36415; 71045; 71275; 80048; 80053; 80061; 83735; 84484; 85025; 85379; 93005; 96365; 96366; J3475; J3480; Q9967; U0003; 99285-25; J7030

== ENCOUNTER 2020-11-03 11:44 | Emergency (ER) | payer MEDICARE ==
[~2020-11-03] VITALS: Ht 149.9 cm; Wt 63.4 kg
[~2020-11-03 11:44] MED LIST changes: +ACET325T9 PO; +MAGN400T44 PO; +OMEP20CA16 PO; +POTA20TA4 PO; +SIMV10TA15 PO
[2020-11-03] MEDS ORDERED: IV NORMAL SALINE 1,000ML 1,000 ML IV ONE (12:00)
[2020-11-03] MEDS ORDERED: ONDANSETRON PF 4 MG/2 ML VIAL. IVP ONE (12:00)
[2020-11-03 12:03] VITALS: BP 127/73
[2020-11-03 12:30] LABS: BASO % 0 % (0-3); EOS # 0.1 x10^3/uL (0.0-0.7); EOS % 1 % (0-3); HEMATOCRIT 35.2 % (36.0-47.0); HEMOGLOBIN 11.1 g/dL (12.0-15.5); LYMPH # 1.2 x10^3/uL (1.0-4.8); LYMPH % 13 % (24-48); MEAN CORPUSCULAR HEMOGLOBIN 27 pg (25-35); MEAN CORPUSCULAR HGB CONC 32 g/dL (31-37); MEAN CORPUSCULAR VOLUME 86 fL (79-100); MONO # 0.9 x10^3/uL (0.0-1.1); MONO % 9 % (0-9); NEUT # 7.4 x10^3uL (1.8-7.7); NEUT % 77 % (31-73); PLATELET COUNT 230 x10^3/uL (140-400); RED BLOOD COUNT 4.09 x10^6/uL (3.50-5.40); RED CELL DISTRIBUTION WIDTH 16.7 % (11.5-14.5); WHITE BLOOD COUNT 9.6 x10^3/uL (4.0-11.0)
--- NOTE | 2020-11-03 12:30 | EKG ---
[address] [address] Test Date: 2020-11-03 Test Time: 12:15:23 Pat Name: [facility] Department: Room: Gender: F Railroad Mechanic: LORENA : 1940 Requested By: KALEB AKHTAR Order Number: [id number] Reading MD: Measurements Intervals [place] Rate: 86 P: 17 RI: 184 QRS: -26 QRSD: 166 T: 39 QT: 432 QTc: 520 Interpretive Statements SINUS RHYTHM VENTRICULAR PREMATURE COMPLEX(ES) LOW LIMB LEAD VOLTAGE NON SPECIFIC INTRAVENTRICULAR BLOCK QRS(T) CONTOUR ABNORMALITY CONSISTENT WITH ANTEROSEPTAL INFARCT POSSIBLY RECENT ABNORMAL ECG RI6.02 No previous ECG available for comparison
[2020-11-03 12:44] LABS: CALCIUM 9.7 mg/dL (8.5-10.1); CREATININE 1.1 mg/dL (0.6-1.0); GFR 47.8; POTASSIUM 3.3 mmol/L (3.5-5.1)
[2020-11-03 12:58] LABS: ALBUMIN 3.6 g/dL (3.4-5.0); ALBUMIN/GLOBULIN RATIO 1.1 (1.0-1.7); MAGNESIUM 1.8 mg/dL (1.8-2.4); TOTAL BILIRUBIN 0.9 mg/dL (0.2-1.0); TOTAL PROTEIN 6.8 g/dL (6.4-8.2)
[2020-11-03] MEDS ORDERED: ONDA4TAB12 PO (14:08)
--- NOTE | 2020-11-03 14:08 | PHYS DOC ---
Past History Past Medical History: Hypertension Past Surgical History: Pacemaker Additional Past Surgical Histo: BACK Smoking: Non-smoker Alcohol Use: None Drug Use: None General Adult EDM: Chief Complaint: DEHYDRATION HPI: HPI: Patient is a 80-year-old female sent over by primary care for lethargy. Patient has a baseline of chronic diarrhea that is unchanged for the past 10 to 15 years. Patient states over the past couple of days she is been having nausea and dry heaves, has not vomited. Denies any fevers, cough, chest pain, headaches. She was started on Macrobid 2 days ago for urinary tract infection. Patient states other than that she has had no other recent antibiotics. Denies any recent travel, sick contacts, undercooked foods. Review of Systems: Review of Systems: All other systems within normal limits except for as noted in the HPI Current Medications: Current Meds: Current Medications Medications (Trade) Dose Ordered Sig/Mamta Start Time Stop Time Status Last Admin Dose Admin Ondansetron HCl (Zofran) 4 mg 1X ONCE 11/03/20 12:00 11/03/20 12:14 DC 11/03/20 12:00 4 MG Sodium Chloride 1,000 ml @ 1,000 mls/hr 1X ONCE 11/03/20 12:00 11/03/20 12:59 DC 11/03/20 12:00 1,000 MLS/HR Allergies: Allergies: Allergies Coded Allergies Type Severity Reaction Last Updated Verified No Known Drug Allergies 10/13/13 No Physical Exam: PE: Constitutional: Well developed, well nourished, no acute distress, non-toxic appearance. [] HENT: Normocephalic, atraumatic, bilateral external ears normal, nose normal. [] Eyes: PERRLA, conjunctiva normal, no discharge. [] Neck: No rigidity, supple, no stridor. [] Cardiovascular: Regular rate and rhythm, brisk cap refill [] Lungs & Thorax: Non labored symmetric respirations, no tachypnea or respiratory distress [] Abdomen: Soft, nondistended. Skin: Warm, dry, no erythema, no rash. [] Back: No tenderness, no CVA tenderness. [] Extremities: No deformities, range of motion grossly intact, no lower extremity edema [] Neurologic: Alert and oriented X 3, no focal deficits noted. [] Psychologic: Affect normal, judgement normal, mood normal. [] Current Patient Data: Labs: Laboratory Tests Test 11/03/20 12:13 White Blood Count 9.6 x10^3/uL (4.0-11.0) Red Blood Count 4.09 x10^6/uL (3.50-5.40) Hemoglobin 11.1 g/dL (12.0-15.5) L Hematocrit 35.2 % (36.0-47.0) L Mean Corpuscular Volume 86 fL (79-100) Mean Corpuscular Hemoglobin 27 pg (25-35) Mean Corpuscular Hemoglobin Concent 32 g/dL (31-37) Red Cell Distribution Width 16.7 % (11.5-14.5) H Platelet Count 230 x10^3/uL (140-400) Neutrophils (%) (Auto) 77 % (31-73) H Lymphocytes (%) (Auto) 13 % (24-48) L Monocytes (%) (Auto) 9 % (0-9) Eosinophils (%) (Auto) 1 % (0-3) Basophils (%) (Auto) 0 % (0-3) Neutrophils # (Auto) 7.4 x10^3uL (1.8-7.7) Lymphocytes # (Auto) 1.2 x10^3/uL (1.0-4.8) Monocytes # (Auto) 0.9 x10^3/uL (0.0-1.1) Eosinophils # (Auto) 0.1 x10^3/uL (0.0-0.7) Basophils # (Auto) 0.0 x10^3/uL (0.0-0.2) Sodium Level 138 mmol/L (136-145) Potassium Level 3.3 mmol/L (3.5-5.1) L Chloride Level 101 mmol/L (98-107) Carbon Dioxide Level 25 mmol/L (21-32) Anion Gap 12 (6-14) Blood Urea Nitrogen 13 mg/dL (7-20) Creatinine 1.1 mg/dL (0.6-1.0) H Estimated GFR (Cockcroft-Gault) 47.8 BUN/Creatinine Ratio 12 (6-20) Glucose Level 140 mg/dL (70-99) H Lactic Acid Level 2.3 mmol/L (0.4-2.0) H Calcium Level 9.7 mg/dL (8.5-10.1) Magnesium Level 1.8 mg/dL (1.8-2.4) Total Bilirubin 0.9 mg/dL (0.2-1.0) Aspartate Amino Transferase (AST) 18 U/L (15-37) Alanine Aminotransferase (ALT) 22 U/L (14-59) Alkaline Phosphatase 65 U/L (46-116) Troponin I Quantitative < 0.017 ng/mL (0-0.055) Total Protein 6.8 g/dL (6.4-8.2) Albumin 3.6 g/dL (3.4-5.0) Albumin/Globulin Ratio 1.1 (1.0-1.7) Lipase 54 U/L (73-393) L Vital Signs: Vital Signs Date Time Temp Pulse Resp B/P (MAP) Pulse Ox O2 Delivery O2 Flow Rate FiO2 11/03/20 12:03 127/73 (91) EKG: EKG: Sinus rhythm, 1 PVC, wide QRS with nonspecific intraventricular block [] Radiology/Procedures: Radiology/Procedures: [] Heart Score: Risk Factors: Risk Factors: DM, Current or recent (<one month) smoker, HTN, HLP, family history of CAD, obesity. Risk Scores: Score 0 - 3: 2.5% MACE over next 6 weeks - Discharge Home Score 4 - 6: 20.3% MACE over next 6 weeks - Admit for Clinical Observation Score 7 - 10: 72.7% MACE over next 6 weeks - Early Invasive Strategies Course & Med Decision Making: Course & Med Decision Making Patient doing better with fluids and Zofran. Patient would like to go home, given instructions on hydration [] Dragon Disclaimer: Aleja Disclaimer: This electronic medical record was generated, in whole or in part, using a voice recognition dictation system. Departure Departure: Impression: Primary Impression: Dehydration Disposition: 01 DC HOME SELF CARE/HOMELESS Condition: IMPROVED Referrals: MER DOMINIQUE (PCP) Patient Instructions: Rehydration, Elderly Scripts Ondansetron (ONDANSETRON ODT) 4 Mg Tab.rapdis 1 TAB PO PRN Q6-8HRS for nausea for 3 Days, #10 TAB Prov: KALEB AKHTAR MD 11/03/20 KALEB AKHTAR MD Nov 03, 2020 14:08
== END 2020-11-03 14:31 | disposition home or self-care (01) ==
LOC: ER 11:44
DX: E86.0 Dehydration (principal); I10 Essential (primary) hypertension; Z95.0 Presence of cardiac pacemaker
CPT/HCPCS: 36415; 80053; 83605; 83690; 83735; 84484; 85025; 87040; 93005; 96361; 96374; 99284; J2405; J7030